=== PATIENT | female | born 1940 | race Caucasian/White ===

== ENCOUNTER 2021-05-23 15:16 | Inpatient (IN) | payer MEDICARE, OTHER ==
[~2021-05-23] VITALS: Ht 167.6 cm; Wt 63.5 kg
--- NOTE | 2021-05-23 15:56 | NUR ---
BIB RA 878 FROM HOME,WORSENING RIGHT KNEE PAIN/SWELLING X 2 WEEKS,DENIES TRAUMA . SKIN INTACT. PT A/OX1-2. TOLERATING R/A WELL WITH NO SOB. CONNECTED PT TO POX AND MONITOR.
[2021-05-23 16:53] LABS: BASOPHILS % (AUTO) 0.2 % (0.0-2.0); HEMATOCRIT 42 % (33-45); HEMOGLOBIN 13.8 g/dL (11.5-14.8); LYMPHOCYTES # (AUTO) 0.6 K/uL (0.8-4.8); MEAN CORPUSCULAR HGB CONC 33 g/dl (31.0-36.0); MEAN CORPUSCULAR VOLUME 92 fL (82-100); MONOCYTES # (AUTO) 0.8 K/uL (0.1-1.30); MONOCYTES % (AUTO) 8.8 % (2.0-12.0); NEUTROPHILS # (AUTO) 7.2 K/uL (1.8-8.9); PLATELET COUNT (AUTO) 258 K/uL (150-450); RED BLOOD CELL COUNT(AUTO) 4.56 MIL/uL (4.0-5.2); WHITE BLOOD COUNT (AUTO) 8.6 K/uL (4.3-11.0)
[2021-05-23 17:00] LABS: CALCIUM, SERUM 8.9 mg/dL (8.5-10.1); POTASSIUM 3.4 mmol/L (3.5-5.1)
--- NOTE | 2021-05-23 17:23 | NUR ---
AVANI CALLES (DAUGHTER)
[2021-05-23] MEDS ORDERED: DONE10TA44 PO (18:04)
[2021-05-23] MEDS ORDERED: LEVA15HF4 IH (18:04)
[2021-05-23] MEDS ORDERED: ASPI-1169 PO (18:05)
[2021-05-23] MEDS ORDERED: MAGNESIUM HYDROXIDE 30 ML UDC PO PRN (18:30)
[2021-05-23] MEDS ORDERED: Z GUARD REMEDY 2 OZ OINT TP PRN (18:30)
[2021-05-23] MEDS ORDERED: ZOLPIDEM TARTRATE 5 MG TABLET PO PRN (18:30)
[2021-05-23] MEDS ORDERED: POTASSIUM CHLORIDE 20 MEQ TAB.PRT.SR PO ONE ×2 (18:30→20:51)
[2021-05-23] MEDS ORDERED: MAG HYDROX/AL HYDROX/SIMETH 30 ML UDC PO PRN (18:30)
[2021-05-23] MEDS ORDERED: TEMAZEPAM 15 MG CAPSULE PO PRN (18:30)
[2021-05-23] MEDS ORDERED: ACETAMINOPHEN 325 MG TABLET PO PRN (18:30)
[2021-05-23] MEDS ORDERED: ONDANSETRON HCL/PF 4 MG/2 ML VIAL IVP PRN (18:30)
[2021-05-23] MEDS ORDERED: MORPHINE SULFATE INJ 4 MG/ML DISP.SYRIN ONE (18:44)
--- NOTE | 2021-05-23 18:54 | NUR ---
PIOTR HANCOCK AT PT'S BEDSIDE FOR RIGHT KNEE ASPIRATION PROCEDURE; CONSENT FORM SIGNED
--- NOTE | 2021-05-23 18:55 | NUR ---
MD Almeida KNEE ASPIRATION DONE WITH 80 ML OUTPUT; SENT TO LAB FOR CELL COUNT, CULTURE. AVANI HYLTON
[2021-05-23] MEDS ORDERED: MORPHINE SULFATE INJ 2 MG/ML DISP.SYRIN IV ONE (19:00)
[2021-05-23] MEDS ORDERED: ONDANSETRON HCL/PF 4 MG/2 ML VIAL IV ONE (19:00)
--- NOTE | 2021-05-23 19:00 | NUR ---
LAC #18G S/L; PATENT AND INTACT
--- NOTE | 2021-05-23 19:05 | NUR ---
COVID ANTIGEN SWAB COLLECTED AND SENT TO LAB
--- NOTE | 2021-05-23 19:49 | NUR ---
REQUESTED BED FROM NURSING SUP
[2021-05-23] MEDS ORDERED: HYDROCODONE/APAP 5/325MG TABLET ONE (21:10)
[2021-05-23] MEDS: HYDROCODONE/APAP 5/325MG TABLET PO PRN (21:12)
--- NOTE | 2021-05-23 22:23 | NUR ---
ROOM 324-1
--- NOTE | 2021-05-23 22:39 | NUR ---
REPORT GIVEN TO NINO (GERTRUDE).
--- NOTE | 2021-05-23 22:44 | NUR ---
PT TRANSFERRED TO [facility] VIA HOSPITAL PROTOCOL.
--- NOTE | 2021-05-23 23:00 | NUR ---
MS RN ADMITTING NOTES PT ARRIVED TO UNIT VIA DIA. PT IS A 80 YEAR FRENCH SPEAKING FEMALE PT A/O X 3-4 WITH SOME FORGETFULNESS. PT IN NO PAIN OR DISCOMFORT AT THIS TIME. PT HAS IV ACCESS ON THE LAC #18G SALINE LOCKED PATENT AND FLUSHING WELL. PT DX SEVERE RIGHT KNEE PAIN. PT S/P KNEE ARTHROCENTESIS IN ER 80 CC OF YELLOW CLOUDY SYNOVIAL FLUID COLLECTED AND SENT TO THE LAB FOR TESTING. NOTED PT WITH RIGHT KNEE NON PITTING EDEMA. KNEE PAINFUL UPON TOUCH. PT HAS MEDICAL HISTORY OF APPENDECTOMY, DEMENTIA, ASTHMA, MITRAL VALVE PROLAPSE. PT IS A POOR HISTORIAN. PT SKIN IS DRY WARM AND INTACT NO DISCOLORATION OR REDNESS NOTED UPON ASSESSMENT. PT BELONGINGS CHECKED. PT ORIENTED TO ROOM AND UNIT CALL LIGHT PLACED WITHIN REACH WILL CONTINUE TO MONITOR.
[2021-05-23] MEDS: MORPHINE SULFATE INJ 2 MG/ML DISP.SYRIN IV PRN (23:31)
--- NOTE | 2021-05-23 23:36 | NUR ---
MS RN NOTES PT REPORTING SEVERE RIGHT KNEE PAIN PRN MORPHINE GIVEN AND TOLERATED WELL. WILL CONTINUE TO MONITOR.
[2021-05-24] VITALS: BP 169/90
[2021-05-24] MEDS: HYDROCODONE/APAP 5/325MG TABLET PO PRN ×3 (01:20→16:05)
--- NOTE | 2021-05-24 01:20 | NUR ---
MS RN NOTES PRN NORCO GIVEN FOR BREAKTHROUGH PAIN GIVEN AND TOLERATED WELL. WILL CONTINUE TO MONITOR.
[2021-05-24 01:23] VITALS: BP 155/56
[2021-05-24] MEDS: MORPHINE SULFATE INJ 2 MG/ML DISP.SYRIN IV PRN ×3 (06:03→18:36)
--- NOTE | 2021-05-24 06:53 | NUR ---
MACHINE PULLER OVER CLOSING NOTES PATIENT STILL AWAKE LAYING IN BED. A/O X3 FORGETFUL. PATIENT WITH REGULAR AND UNLABORED BREATHING ON ROOM AIR, TOLERATED WELL. NO SIGNS AND SYMPTOMS OF DISTRESS NOTED. ADMINISTERED PAIN MEDICATION NEEDED. IV ACCESS LAC G #18IV ACCESS PATENT AND INTACT. SAFETY PRECAUTIONS ENFORCED WITH BED LOCKED AND AT LOWEST POSITION. SIDERAILS UP X2. CALL LIGHT WITHIN REACH AT ALL TIMES. WILL ENDORSE CONTINUITY OF CARE TO DAY SHIFT NURSE.
--- NOTE | 2021-05-24 07:25 | NUR ---
MS RN OPENING NOTE RECEIVED PATIENT RESTING IN BED. PATIENT IS A/O X4. PATIENT IS BREATHING EVENLY AND NONLABORED ON ROOM AIR. NO SIGNS OF DISTRESS NOTED. PATIENT COMPLAINS OF PAIN IN THE KNEE, WILL GIVE PRN PAIN MEDICATION ORDERED. PATIENT HAS IV ACCESS TO LAC # 18 GAUGE PATENT AND INTACT. SAFETY MEASURES IN PLACE, BED LOW LOCKED AND CALL LIGHT WITHIN REACH. WILL CONTINUE TO MONITOR
[2021-05-24 08:00] VITALS: BP 124/86
[2021-05-24] MEDS: PANTOPRAZOLE 40 MG TABLET.DR PO SCH (08:05)
[2021-05-24] MEDS: ENOXAPARIN SODIUM 40 MG/0.4 ML DISP.SYRIN SQ SCH (08:05)
[2021-05-24 09:07] LABS: BASOPHILS % (AUTO) 0.1 % (0.0-2.0); HEMATOCRIT 41 % (33-45); HEMOGLOBIN 13.8 g/dL (11.5-14.8); LYMPHOCYTES # (AUTO) 0.6 K/uL (0.8-4.8); LYMPHOCYTES % (AUTO) 6.1 % (20.0-44.0); MEAN CORPUSCULAR HGB CONC 33 g/dl (31.0-36.0); MEAN CORPUSCULAR VOLUME 92 fL (82-100); MONOCYTES # (AUTO) 0.8 K/uL (0.1-1.30); MONOCYTES % (AUTO) 8.2 % (2.0-12.0); NEUTROPHILS # (AUTO) 7.8 K/uL (1.8-8.9); NEUTROPHILS % (AUTO) 85.6 % (43.0-81.0); PLATELET COUNT (AUTO) 213 K/uL (150-450); WHITE BLOOD COUNT (AUTO) 9.2 K/uL (4.3-11.0)
[2021-05-24 09:45] LABS: CALCIUM, SERUM 8.7 mg/dL (8.5-10.1); CREATININE 0.9 mg/dL (0.6-1.3); MAGNESIUM 2.2 mg/dL (1.8-2.4); PHOSPHORUS 2.5 mg/dL (2.5-4.9); POTASSIUM 3.7 mmol/L (3.5-5.1)
[2021-05-24 10:02] LABS: THYROID STIMULATING HORMONE 0.988 uIU/mL (0.358-3.74)
[2021-05-24 16:00] VITALS: BP 113/60
--- NOTE | 2021-05-24 18:19 | NUR ---
MS RN CLOSING NOTE PATIENT RESTING IN BED. PATIENT IS A/O X4. PATIENT IS BREATHING EVENLY AND NONLABORED ON ROOM AIR. NO SIGNS OF DISTRESS NOTED. PATIENT COMPLAINED OF PAIN IN THE KNEE THROUGHOUT SHIFT, PRN MEDICATION GIVEN ORDERED, VITALS MAINTAINED WNL. ALL MEDICATIONS GIVEN ORDERED. PATIENT HAS IV ACCESS TO LAC # 18 GAUGE PATENT AND INTACT. SAFETY MEASURES IN PLACE, BED LOW LOCKED AND CALL LIGHT WITHIN REACH. WILL ENDORSE TO ONCOMING SHIFT
--- NOTE | 2021-05-24 19:20 | NUR ---
MS RN OPENING NOTES RECEIVED PATIENT RESTING IN BED. PATIENT IS A/O X4. PATIENT ON R.A IS BREATHING EVEN AND UNLABORED.. NO SIGNS OF RESPIRATORY DISTRESS NOTED. PATIENT DENIES OF PAIN AT THIS TIME . PATIENT HAS IV ACCESS TO LAC # 18 GAUGE PATENT AND INTACT. SAFETY MEASURES IN PLACE, BED LOW LOCKED AND CALL LIGHT WITHIN REACH. WILL CONTINUE TO MONITOR PATIENT ACCORDINGLY
[2021-05-24 20:00] VITALS: BP 132/77
--- NOTE | 2021-05-25 00:27 | NUR ---
RN NOTES PATIENT NOTED WITH TEMP. OF 101.3F, ACETAMINOPHEN 650 MG TAB. PO GIVEN PRN. TSB RENDERED. ENCORAGED PT. TO DRIINK MORE FLUIDS TOLERATED. AFTER 2 HR. TEMP. WENT DOWN TO 98.7f
[2021-05-25] MEDS: HYDROCODONE/APAP 5/325MG TABLET PO PRN ×2 (01:49→20:30)
--- NOTE | 2021-05-25 01:49 | NUR ---
RN NOTES PATIENT C/O RIGT KNEE PAIN, NORCO 5/325 MG TAB. PO PRN GIVEN ORDERED. PLACED PT. TO COMFORTABLE POSITION. WILL CONTINUE TO MONITOR PT. ACCDGLY.
--- NOTE | 2021-05-25 07:06 | NUR ---
MS RN CLOSING NOTES PATIENT RESTING IN BED. PATIENT IS A/O X4. PATIENT ON R.A IS BREATHING EVEN AND UNLABORED.. NO SIGNS OF RESPIRATORY DISTRESS NOTED. PATIENT DENIES OF PAIN AT THIS TIME . PATIENT HAS IV ACCESS TO LAC # 18 GAUGE PATENT AND INTACT. SAFETY MEASURES IN PLACE, BED LOW LOCKED AND CALL LIGHT WITHIN REACH. WILL ENDORSED PATIENT TO DAY TIME SHIFT FOR HIRAM
[2021-05-25] MEDS: PANTOPRAZOLE 40 MG TABLET.DR PO SCH (07:54)
[2021-05-25] MEDS: MORPHINE SULFATE INJ 2 MG/ML DISP.SYRIN IV PRN (07:54)
[2021-05-25] MEDS: ENOXAPARIN SODIUM 40 MG/0.4 ML DISP.SYRIN SQ SCH (07:56)
[2021-05-25 08:00] VITALS: BP 162/70
--- NOTE | 2021-05-25 08:12 | NUR ---
RN OPENING NOTES PT A/OX4, PT AWAKE IN BED, NO RR DISTRESS, NO SOB, COMPLAINED OF PAIN 9/10 IN LOWER BACK, NO IV SALINE LOCK ON RIGHT ARM, NO SIGNS OF BEING PULLED OUT, RIGHT ARM TAPED WITH GAUZE, NEW IV ACCESS GAUGE 20 PLACED ON RIGHT FOREARM, PRN PAIN MED ADMINISTERED VIA IV, MORNING MEDS GIVEN, ABLE TO TOLERATE PO MEDS, PT ASSESSED SHORTLY AFTER, PT RESTING IN BED. SAFETY PRECAUTIONS MET, CALL LIGHT WITHIN REACH, BED LOCKED AND IN LOWEST POSITION.
[2021-05-25] MEDS ORDERED: NAPR-1009 PO (10:05)
[2021-05-25] MEDS ORDERED: HYDR-4275 PO (10:41)
[2021-05-25] MEDS: HYDROMORPHONE 1 MG/1 ML DISP.SYRIN IV PRN ×3 (11:05→18:21)
[2021-05-25 16:00] VITALS: BP 145/74
--- NOTE | 2021-05-25 19:00 | NUR ---
RN MS NOTES PT IN BED, RESTING, PAIN MEDS GIVEN ORDERED FOR RIGHT KNEE PAIN, PM CARE PROVIDED, KEPT WARM AND COMFORTABLE AT ALL TIMES.
--- NOTE | 2021-05-25 19:21 | NUR ---
RN OPENING NOTES RECEIVED PT A/OX4, PT AWAKE IN BED, NO RESPIRATORY DISTRESS NOTED, NO SOB,BREATHING EVEN AND UNLABORED. NO PAIN AT THIS TIME. PT. WITH IV ACCESS AT RFA SALINE LOCKED, INTACT AND PATENT. SAFETY PRECAUTIONS MET, CALL LIGHT WITHIN EASY REACH, BED LOCKED AND IN LOWEST POSITION, SRX [address] WILL CONTINUE TO MONITOR PT. ACCDGLY
--- NOTE | 2021-05-25 19:33 | NUR ---
RN CLOSING NOTES PT RESTING IN BED, A/0X4, ADMINISTERED MEDS ORDERED, COMFORT MEASURES MET, PERSONAL HYGIENE CARE PROVIDED, CALL LIGHT WITHIN REACH, BED LOWERED AND LOCKED, SAFETY PRECAUTIONS PROVIDED
[2021-05-25 20:23] VITALS: BP 147/69
--- NOTE | 2021-05-25 20:35 | NUR ---
RN NOTES PATIENT C/O RIGHT KNEE PAIN, PRN NORCO 5-325 GIVEN ORDERED. PLACED PT. IN COMFORTABLE POSITION. WILL CONTINUE TO MONITOR PT. ACCDGLY
[2021-05-26] MEDS: HYDROMORPHONE 1 MG/1 ML DISP.SYRIN IV PRN ×3 (03:55→14:06)
--- NOTE | 2021-05-26 06:32 | NUR ---
RN CLOSING NOTES PT A/OX4, PT AWAKE IN BED, NO RESPIRATORY DISTRESS NOTED, NO SOB,BREATHING EVEN AND UNLABORED. NO PAIN AT THIS TIME. PT. WITH IV ACCESS AT RFA SALINE LOCKED, INTACT AND PATENT. ALL NEEDS ATTENDED. FREQUENT VISUAL CHECKS RENDERED TO ENSURE SAFETY AND COMFORT. SAFETY PRECAUTIONS MET, CALL LIGHT WITHIN EASY REACH. SR UP X 2. WILL ENDORSED PT. TO DAY TIME SHIFT NURSE FOR HIRAM.
--- NOTE | 2021-05-26 07:30 | NUR ---
RN OPENING NOTES RECEIVED Patient AWAKE IN BED, NO RESPIRATORY DISTRESS NOTED, NO SOB,BREATHING EVEN AND UNLABORED. NO PAIN AT THIS TIME. IV ACCESS AT RFA #20 SALINE LOCKED, INTACT AND PATENT. SAFETY PRECAUTIONS MET, CALL LIGHT WITHIN EASY REACH, BED LOCKED AND IN LOWEST POSITION, SIDE RAILS X2 UP. WILL CONTINUE TO MONITOR THE PATIENT.
[2021-05-26] MEDS: PANTOPRAZOLE 40 MG TABLET.DR PO SCH (07:40)
[2021-05-26 08:00] VITALS: BP 157/75
[2021-05-26] MEDS: ENOXAPARIN SODIUM 40 MG/0.4 ML DISP.SYRIN SQ SCH (12:19)
[2021-05-26 15:59] VITALS: BP 134/75
--- NOTE | 2021-05-26 17:29 | NUR ---
FIELD STAFF NOTES SPOKE WITH ELIZABET FROM [facility].GAVE THE REPORT TO HER WITH PHONE NUMBER [phone]. ALL NEEDS ATTENDED. DISCHARGE PATIENT IN GOOD CONDITION.VITAL SIGNS: UW=602/75. P=70, RR=20, T=98.6, O2=94%RA. IV ACCESS REMOVED. COVERED WITH DRY DRESSING. NO BLEEDING, NOTED. DISCHARGE AT 1607 WITH ROOM AIR BREATHING. NO SOB NO RESPIRATORY DISTRESS NOTES.BELONGINGS ACCOUNTED AND SIGNED FOR.ARM BAND REMOVED. 2 MT TRANSFER THE PATIENT VIA AMBULANCE WHILE IN STABLE CONDITION TO [facility].
== END 2021-05-26 16:00 | DRG 554 ==
LOC: ER 15:20 → TRANSITION 20:40 → MED 22:28
PROVIDERS: ADMIT Nurse Practitioner Acute Care; ATTEND Internal Medicine
PROC: 0S9C3ZX Drainage of Right Knee Joint, Percutaneous Approach, Diagnostic (ICD-10-PCS; principal; 2021-05-23)
DX: M17.11 Unilateral primary osteoarthritis, right knee (principal); D68.59 Other primary thrombophilia; E87.6 Hypokalemia; F03.90 Unspecified dementia, unspecified severity, without behavioral disturbance, psychotic disturbance, mood disturbance, and anxiety; I34.1 Nonrheumatic mitral (valve) prolapse; J45.909 Unspecified asthma, uncomplicated; Z20.822 Contact with and (suspected) exposure to COVID-19; Z79.82 Long term (current) use of aspirin; Z79.51 Long term (current) use of inhaled steroids; Z79.899 Other long term (current) drug therapy; M11.261 Other chondrocalcinosis, right knee; M10.9 Gout, unspecified; Z74.09 Other reduced mobility; M81.0 Age-related osteoporosis without current pathological fracture
CPT/HCPCS: 36415; 71045-TC; 73564-TC; 80048-TC; 83735-TC; 84100-TC; 84443-TC; 84550-TC; 85025-TC; 87070-TC; 87081-TC; 89051-TC; 97530-TC; C9803; G0378; J1170; J1650; J2270; J2405

== ENCOUNTER 2022-01-17 02:06 | Inpatient (IN) | payer OTHER, MEDICARE ==
[~2022-01-17] VITALS: Ht 167.6 cm; Wt 63.5 kg
[~2022-01-17 02:06] MED LIST: ASPI-1169 PO; DONE10TA44 PO; HYDR-4275 PO; LEVA15HF4 IH; NAPR-1009 PO
[2022-01-17] MEDS ORDERED: IV NS 0.9% 1,000 ML IV ONE (02:30)
[2022-01-17] MEDS ORDERED: ONDANSETRON HCL/PF 4 MG/2 ML VIAL IVP ONE (02:30)
[2022-01-17] MEDS ORDERED: ONDANSETRON HCL/PF 4 MG/2 ML VIAL ONE (02:32)
--- NOTE | 2022-01-17 02:40 | NUR ---
PATIENT BIBRA 839 C/O DIZZYNESS, NAUSEA AND VOMMITING STARTED TONIGHT. PATIENT IS A/O X3, RR EVEN AND UNLABORED. NO SOB NOTED. PATIENT TAKEN TO ER BED 10. PATIENT CONNECTED TO DIRECTOR OF NUCLEAR MEDICINE AND POX.
[2022-01-17 02:44] LABS: BASOPHILS % (AUTO) 0.6 % (0.0-2.0); HEMATOCRIT 40 % (33-45); HEMOGLOBIN 13.2 g/dL (11.5-14.8); LYMPHOCYTES % (AUTO) 16.4 % (20.0-44.0); MEAN CORPUSCULAR HGB CONC 33 g/dl (31.0-36.0); MEAN CORPUSCULAR VOLUME 89 fL (82-100); MONOCYTES # (AUTO) 0.3 K/uL (0.1-1.30); MONOCYTES % (AUTO) 4.7 % (2.0-12.0); NEUTROPHILS # (AUTO) 4.7 K/uL (1.8-8.9); NEUTROPHILS % (AUTO) 76.3 % (43.0-81.0); PLATELET COUNT (AUTO) 220 K/uL (150-450); RED BLOOD CELL COUNT(AUTO) 4.51 MIL/uL (4.0-5.2); WHITE BLOOD COUNT (AUTO) 6.1 K/uL (4.3-11.0)
[2022-01-17 02:54] LABS: CALCIUM, SERUM 8.8 mg/dL (8.5-10.1); CARBON DIOXIDE 27 mmol/L (21-32); CHLORIDE 102 mmol/L (98-107); CREATININE 0.9 mg/dL (0.6-1.3); GLUCOSE 178 mg/dL (74-106); POTASSIUM 3.1 mmol/L (3.5-5.1); SODIUM SERUM 139 mmol/L (136-145); UREA NITROGEN, BLOOD 21 mg/dL (7-18)
[2022-01-17 03:00] LABS: ALANINE AMINOTRANSFERASE 25 U/L (12-78); ALBUMIN 3.8 g/dL (3.4-5.0); ALKALINE PHOSPHATASE 96 U/L (46-116); ASPARTATE AMINOTRANSFERASE 15 U/L (15-37); BILIRUBIN,DIRECT 0.1 mg/dL (0.0-0.2); BILIRUBIN,TOTAL 0.5 mg/dL (0.2-1.0); TOTAL PROTEIN, SERUM 7.3 g/dL (6.4-8.2)
[2022-01-17] MEDS ORDERED: POTASSIUM CHLORIDE 20 MEQ TAB.PRT.SR PO ONE ×2 (03:30→03:34)
[2022-01-17 05:05] LABS: BILIRUBIN,URINE NEGATIVE (NEGATIVE); COLOR,URINE YELLOW (YELLOW); LEUKOCYTE ESTERASE ,URINE NEGATIVE (NEGATIVE); NITRITE, URINE NEGATIVE (NEGATIVE); PH,URINE 5.5 (5.0-8.0); PROTEIN,URINE NEGATIVE (NEGATIVE); UGLUCOSE NEGATIVE (NEGATIVE); UROBILINOGEN,URINE 0.2 EU/dL (0.2)
--- NOTE | 2022-01-17 05:21 | NUR ---
URINE COLLECTED SENT TO LAB
--- NOTE | 2022-01-17 05:21 | NUR ---
COVID SWAB COLLECTED SENT TO LAB
[2022-01-17] MEDS ORDERED: MAG HYDROX/AL HYDROX/SIMETH 30 ML UDC PO PRN (06:30)
[2022-01-17] MEDS ORDERED: ACETAMINOPHEN 325 MG TABLET PO PRN (06:30)
[2022-01-17] MEDS ORDERED: Medication Not On Formulary EA (Levalbuterol Tartrate (Xopenex Hfa) 2 PUFF) IH PRN (06:30)
[2022-01-17] MEDS ORDERED: IV NS 0.9% 1,000 ML IV PRN (06:30)
[2022-01-17] MEDS ORDERED: ONDANSETRON HCL/PF 4 MG/2 ML VIAL IVP PRN (06:30)
--- NOTE | 2022-01-17 07:41 | NUR ---
BED ASSIGNED 310-2
[2022-01-17 07:45] LABS: LIPASE 121 U/L (73-393)
--- NOTE | 2022-01-17 07:47 | NUR ---
DAUGHTER CALLED AND UPDATED ON STATUS
[2022-01-17] MEDS ORDERED: ALBUTEROL FS 2.5 MG/0.5 ML VIAL.NEB NEB PRN (08:30)
--- NOTE | 2022-01-17 08:40 | NUR ---
PT REPORT GIVEN TO GERTRUDE GONZALES.
--- NOTE | 2022-01-17 08:53 | NUR ---
PT TRANSFERRED TO UNIT VIA GURNEY. WARM HANDOFF GIVEN TO RN ASSIGNED.
[2022-01-17] MEDS ORDERED: HYDROCODONE/APAP 5/325MG TABLET PO PRN (09:00)
[2022-01-17] MEDS ORDERED: Z GUARD REMEDY 4 OZ OINT TP PRN (09:00)
--- NOTE | 2022-01-17 09:00 | NUR ---
ADMISSION NOTES RECEIVED PATIENT VIA GURNEY 85 Y/O FEMALE ADMITTED WITH CHIEF COMPLAINT OF DIZZINESS, NAUSEA AND VOMITING ALERT AWAKE ORIENTED X4 WITH PERIODS OF FORGETFULNESS .IV ACCESS ON LAC G# 20 . INTACT AND PATENT.VITAL SIGNS FOLLOWS: BP= 125/53 CA= 63 RR= 18 TEMP= 97.9 O2 SAT = 98% ROOM AIR. PATIENT DENIES DIZZINESS AND N/V AT THIS TIME.PATIENT ORIENTED TO ROOM AND HOW TO USE CALL LIGHTS . SKIN ASSESSMENT DONE ,SKIN IS C/D/I.LUNGS CLEAR ON AUSCULTATION , BOWEL SOUND PRESENT X 4 . ABDOMEN IS SOFT NON-TENDER. ALL BELONGINGS ACCOUNTED FOR , BELONGING SHEET SIGNED. ID BAND PLACED ON PATIENTS RIGHT WRIST. ALL ADMISSION ORDERS NOTED AND CARRIED OUT. SAFETY MEASURES IN PLACE LOW BED IN LOWEST POSITION , KEPT BED IN LOCK POSITION, SIDE RAILS UP X 2 AND CALL LIGHT WITHIN REACH.WILL CONTINUE TO MONITOR.
[2022-01-17] MEDS: ASPIRIN 81 MG TAB.CHEW PO SCH (09:58)
[2022-01-17] MEDS: ENOXAPARIN SODIUM 40 MG/0.4 ML DISP.SYRIN SQ SCH (17:56)
[2022-01-17] MEDS ORDERED: DONEPEZIL 5 MG TABLET PO SCH (18:00)
[2022-01-17] MEDS ORDERED: Medication Not On Formulary EA (Donepezil Hcl 10 MG) PO SCH (18:00)
--- NOTE | 2022-01-17 18:56 | NUR ---
SHIP BOSS CLOSING NOTES PATIENT RESTING COMFORTABLY IN BED. NO SIGNS OF DISTRESS OR DISCOMFORT NOTED AT THIS.ALERT ORIENTED X 3 WITH PERIODS OF FORGETFULNESS. BREATHING EVENLY AND UNLABORED. IV ACCESS LEFT AC GAUGE 2O SL INTACT AND PATENT.ON TELE MONITORING 74 BPM SINUS RHYTHM WITH PAC .ALL DUE MEDS GIVEN AND NO ADVERSE REACTION NOTED . ALL NEEDS ATTENDED AND MET. SAFETY PRECAUTIONS IN PLACE BED IN LOW LOCK POSITION , SIDE RAILS UP X 2 AND CALL LIGHT WITHIN REACH . WILL ENDORSE TO TOWER FOREMAN NURSE FOR HIRAM.
--- NOTE | 2022-01-17 19:15 | NUR ---
BILL SORTER NOTES RECEIVED RESTING COMFORTABLY ON BED,A/O X3,NO SOB,SALINE LOCK LEFT AC INTACT AND PATENT.COMMENTED STILL WITH SLIGHT DIZZINESS,FALL PRECAUTION OBSERVED,BED ON LOWEST POSITION AND LOCKED,BED ALARM,CALL LIGHT IN REACH,NEEDS ANTICIPATED.
--- NOTE | 2022-01-17 19:33 | NUR ---
MANUFACTURING PLANT CONTROLLER NOTES STARTED ON IVF NS AT 100ML/HR RATE.
[2022-01-17 20:00] VITALS: BP 102/67
[2022-01-17] MEDS ORDERED: ZOLPIDEM TARTRATE 5 MG TABLET PO PRN (22:00)
[2022-01-17] MEDS ORDERED: MAGNESIUM HYDROXIDE 30 ML UDC PO PRN (22:00)
[2022-01-18] VITALS: BP 108/57
[2022-01-18 04:00] VITALS: BP 122/59
[2022-01-18 06:21] LABS: BASOPHILS % (AUTO) 0.7 % (0.0-2.0); EOSINOPHILS % (AUTO) 3.5 % (0.0-6.0); HEMATOCRIT 35 % (33-45); HEMOGLOBIN 11.9 g/dL (11.5-14.8); LYMPHOCYTES # (AUTO) 1.2 K/uL (0.8-4.8); MEAN CORPUSCULAR HGB CONC 34 g/dl (31.0-36.0); MEAN CORPUSCULAR VOLUME 89 fL (82-100); MONOCYTES # (AUTO) 0.3 K/uL (0.1-1.30); MONOCYTES % (AUTO) 7.7 % (2.0-12.0); NEUTROPHILS # (AUTO) 2.1 K/uL (1.8-8.9); NEUTROPHILS % (AUTO) 56.1 % (43.0-81.0); PLATELET COUNT (AUTO) 199 K/uL (150-450); WHITE BLOOD COUNT (AUTO) 3.8 K/uL (4.3-11.0)
[2022-01-18 06:32] LABS: CALCIUM, SERUM 8.5 mg/dL (8.5-10.1); CARBON DIOXIDE 29 mmol/L (21-32); CHLORIDE 110 mmol/L (98-107); CREATININE 0.8 mg/dL (0.6-1.3); GLUCOSE 90 mg/dL (74-106); MAGNESIUM 2.1 mg/dL (1.8-2.4); PHOSPHORUS 3.7 mg/dL (2.5-4.9); POTASSIUM 3.5 mmol/L (3.5-5.1); SODIUM SERUM 145 mmol/L (136-145); UREA NITROGEN, BLOOD 13 mg/dL (7-18)
--- NOTE | 2022-01-18 07:01 | NUR ---
OVERSIZE LOAD PILOT ESCORT NOTES MRSA SWAB DONE,NO FALL,NO INJURY,BRP WITH STANDBY ASSIST.NO DISTRESS.
--- NOTE | 2022-01-18 07:21 | NUR ---
BABYSITTER OPENING NOTES RECEIVED PATIENT AWAKE IN BED IN NO ACUTE SIGNS OF DISTRESS. A/O X3, ABLE TO VERBALIZED NEEDS, DENIES PAIN OR ANY DISCOMFORTS AT THIS TIME. ON ROOM AIR, TOLERATING WELL, BREATHING EVEN AND UNLABORED. ON TELE-MONITOR WITH READING OF NSR WITH PAC'S AND PVC'S, HR 84 AT THIS TIME, NO C/O CARDIAC DISTRESS VOICED. IV ACCESS ON RFA G#22 INTACT WITH IVF OF NS @ 100ML/HR INFUSING WELL, NO S/S OF INFILTRATION AT SITE NOTED. FALL AND SAFETY MEASURES IN PLACE: BED ON LOWEST POSITION AND LOCKED, BED ALARM ON AND CALL LIGHT IN REACH. WILL CONTINUE TO MONITOR PT.
[2022-01-18 08:30] VITALS: BP 114/64
[2022-01-18 08:32] VITALS: BP 109/63
[2022-01-18 08:35] VITALS: BP 107/46
[2022-01-18] MEDS: ENOXAPARIN SODIUM 40 MG/0.4 ML DISP.SYRIN SQ SCH (09:07)
[2022-01-18] MEDS: ASPIRIN 81 MG TAB.CHEW PO SCH (09:08)
--- NOTE | 2022-01-18 10:17 | NUR ---
RN NOTES PT SEEN AND EVALUATED BY JOHN PHYSICAL THERAPIST. PT DEMONSTRATES SAFE GAIT AND IS SAFE TO WALK WITH STAFF SUPERVISION
--- NOTE | 2022-01-18 15:32 | NUR ---
PAINTING SUPERVISOR NOTES PT DISCHARGED HOME IN STABLE CONDITION. A/O X4. ABLE TO MAKE NEEDS KNOWN. PT ON ROOM AIR, TOLERATING WELL WITH NO ACUTE RESP[IRATORY DISTRESS NOTED. V/S TAKEN, STABLE AND RECORDED. ALL PT'S BELONGINGS ACCOUNTED FOR AND PT'S DAUGHTER SIGNED BELONGINGS LIST. IV ACCESS ON RFA G# 22 REMOVED WITH NO ACTIVE BLEEDING NOTED, DRY PRESSURE DRESSINGS APPLIED AT SITE. NAME VIBHA REMOVED. HEALTH TEACHINGS/DISCHARGE INSTRUCTIONS GIVEN TO PT, DAUGHTER AND SON WITH VERBALIZATION OF UNDERSTANDING. EXIT FOLDER HANDED TO PT'S DAUGHTER. PT LEFT UNIT AT 1535 VIA WHEELCHAIR ACCOMPANIED BY SON ALFREDO, DAUGHTER IN LAW AVANI AND MYSELF. MD AND CHARGE NURSE AWARE OF DC.
== END 2022-01-18 15:30 | disposition home or self-care (01) | DRG 73 ==
LOC: ER 02:09 → TRANSITION 06:23 → TELE 08:03
PROVIDERS: ADMIT Nurse Practitioner Acute Care; ATTEND Student in an Organized Health Care Education/Training Program
DX: G90.8 Other disorders of autonomic nervous system (principal); G93.41 Metabolic encephalopathy; N17.0 Acute kidney failure with tubular necrosis; J45.909 Unspecified asthma, uncomplicated; Z79.82 Long term (current) use of aspirin; E87.6 Hypokalemia; F03.90 Unspecified dementia, unspecified severity, without behavioral disturbance, psychotic disturbance, mood disturbance, and anxiety; M19.90 Unspecified osteoarthritis, unspecified site; Z20.822 Contact with and (suspected) exposure to COVID-19; E86.0 Dehydration
CPT/HCPCS: 36415; 70450-TC; 71045-TC; 80048-TC; 80076-TC; 83690-TC; 83735-TC; 84100-TC; 84484-TC; 85025-TC; 85730-TC; 87081-TC; 93307-TC; 94799-TC; 97116-TC; 97530-TC; C9803; G0378; J1650; J2405; J7030

== ENCOUNTER 2022-02-09 22:45 | Inpatient (IN) | payer OTHER, MEDICARE ==
[~2022-02-09] VITALS: Ht 167.6 cm; Wt 64.4 kg
[~2022-02-09 22:45] MED LIST changes: -NAPR-1009 PO
[2022-02-09] MEDS ORDERED: MORPHINE SULFATE INJ 2 MG/ML DISP.SYRIN IV ONE (23:30)
[2022-02-09 23:36] LABS: BASOPHILS % (AUTO) 0.4 % (0.0-2.0); EOSINOPHILS % (AUTO) 1.3 % (0.0-6.0); HEMATOCRIT 43 % (33-45); HEMOGLOBIN 13.9 g/dL (11.5-14.8); LYMPHOCYTES # (AUTO) 1.2 K/uL (0.8-4.8); LYMPHOCYTES % (AUTO) 17.5 % (20.0-44.0); MEAN CORPUSCULAR HGB CONC 33 g/dl (31.0-36.0); MEAN CORPUSCULAR VOLUME 90 fL (82-100); MONOCYTES # (AUTO) 0.5 K/uL (0.1-1.30); MONOCYTES % (AUTO) 7.1 % (2.0-12.0); NEUTROPHILS # (AUTO) 4.9 K/uL (1.8-8.9); NEUTROPHILS % (AUTO) 73.7 % (43.0-81.0); PLATELET COUNT (AUTO) 248 K/uL (150-450); WHITE BLOOD COUNT (AUTO) 6.6 K/uL (4.3-11.0)
[2022-02-09] MEDS ORDERED: MORPHINE SULFATE INJ 2 MG/ML DISP.SYRIN ONE (23:43)
[2022-02-09 23:44] LABS: CREATININE 1.1 mg/dL (0.6-1.3); POTASSIUM 3.7 mmol/L (3.5-5.1)
--- NOTE | 2022-02-09 23:45 | NUR ---
PT RETURNED TO ER BED [address]
--- NOTE | 2022-02-09 23:49 | NUR ---
ANNAMARIA TO ER BED 11. AAOX4. NOT IN RESP DISTRESS. BROUGHT IN FOR KNEE PAIN AND SWELLING STARTED SEVERAL DAYS PER PT BUT GOT WORST SEVERAL HOURS AGO. NOTED SWELLING AND PAIN RATE 10/10 CRAMPING. WAS AT [facility] BEDSIDE FOR EVAL
[2022-02-09 23:50] LABS: BILIRUBIN,DIRECT 0.1 mg/dL (0.0-0.2); BILIRUBIN,TOTAL 0.7 mg/dL (0.2-1.0); TOTAL PROTEIN, SERUM 7.3 g/dL (6.4-8.2)
--- NOTE | 2022-02-09 23:53 | NUR ---
COVID ANTIGEN SWAB COLLECTED AND SENT TO LAB
[2022-02-10] MEDS ORDERED: Z GUARD REMEDY 4 OZ OINT TP PRN (02:30)
[2022-02-10] MEDS ORDERED: ACETAMINOPHEN 325 MG TABLET PO PRN (02:30)
[2022-02-10] MEDS ORDERED: TEMAZEPAM 15 MG CAPSULE PO PRN (02:30)
[2022-02-10] MEDS ORDERED: MAGNESIUM HYDROXIDE 30 ML UDC PO PRN (02:30)
[2022-02-10] MEDS ORDERED: ONDANSETRON HCL/PF 4 MG/2 ML VIAL IVP PRN (02:30)
[2022-02-10] MEDS ORDERED: MAG HYDROX/AL HYDROX/SIMETH 30 ML UDC PO PRN (02:30)
[2022-02-10] MEDS ORDERED: HYDROCODONE/APAP 5/325MG TABLET PO PRN (02:30)
[2022-02-10] MEDS ORDERED: PANTOPRAZOLE 40 MG TABLET.DR PO ONE (07:17)
[2022-02-10] MEDS: PANTOPRAZOLE 40 MG TABLET.DR PO SCH (07:17)
[2022-02-10] MEDS ORDERED: HYDROCODONE/APAP 10/325MG TABLET ONE (07:24)
[2022-02-10] MEDS: HYDROCODONE/APAP 10/325MG TABLET PO PRN ×2 (07:24→12:05)
--- NOTE | 2022-02-10 07:50 | NUR ---
DR MUKHERJEE AT BEDSIDE W/ PT.
--- NOTE | 2022-02-10 08:21 | NUR ---
CALLED NURSING SUP FOR M/S BED.
--- NOTE | 2022-02-10 08:25 | NUR ---
BREAKFAST TRAY PROVIDED, TOBIAS WELL.
--- NOTE | 2022-02-10 08:40 | NUR ---
DAUGHTER AVANI CALLED AND LEFT CONTACT # [phone]
[2022-02-10] MEDS ORDERED: HYDR-3972 PO (09:47)
--- NOTE | 2022-02-10 10:42 | NUR ---
PT REPORT GIVEN TO BOBBI LOREDO/CHERYL LOREDO.
--- NOTE | 2022-02-10 11:07 | NUR ---
PT TRANSFERRED TO [facility] VIA [facility]. WARM HANDOFF GIVEN TO RN ASSIGNED.
--- NOTE | 2022-02-10 12:00 | NUR ---
RN NOTE RECEIVED PT FROM EMERGENCY ROOM. AWAKE IN BED. A/OX4. NO SIGNS OF RESPIRATORY DISTRESS OR SOB NOTED. STABLE ON RA. SWELLING IN PTS RIGHT KNEE, C/O PAIN OF 8 OUT OF 10. PAIN MEDICATION HAS BEEN ADMINISTERED. PT RESTING COMFORTABLY IN BED. WILL CONTINUE TO MONITOR.
--- NOTE | 2022-02-10 15:30 | NUR ---
RN NOTE ORTHO CAME TO ASPIRATE FLUID OUT OF THE PTS KNEE. 59CC OF FLUID REMOVED. PT RESTING COMFORTABLY IN BED.
[2022-02-10 15:51] VITALS: BP 128/76
[2022-02-10] MEDS: DONEPEZIL 5 MG TABLET PO SCH (18:02)
--- NOTE | 2022-02-10 18:32 | NUR ---
RN CLOSING NOTE, PT IS SLEEPING IN BED. A/O X 4. PT IS ON ROOM AIR, SO SIGNS OF SOB OR RESPIRATORY DISTRESS. STABLE ON RA. ORTHO CAME AND DRAINED FLUID OUT OF THE PT'S RIGHT KNEE, PT STATED THAT PAIN HAS NOW DECREASED. IV LEFT AC INTACT AND PATENT, NO FLUIDS INFUSING. SAFETY MEASURES: BED LOCKED IN LOWEST POSITION, SIDE RAILS X2, CALL LIGHT WITHIN REACH. WILL ENDORSE TO THE MEDICAL ANTHROPOLOGIST NURSE FOR HIRAM.
--- NOTE | 2022-02-10 19:35 | NUR ---
MS RN OPENING NOTE PATIENT AWAKE IN BED, ALERT/ORIENTED X 4, PT ABLE TO MAKE NEEDS KNOWN. PATIENT STABLE ON RA, NO S/S OF DISTRESS OR SOB NOTED, BREATHING EVEN AND UNLABORED. IV ACCESS ON LAC #20G INTACT AND SALINE LOCKED. SAFETY MEASURES IN PLACE: CALL LIGHT WITHIN REACH, SIDE RAILS UP X 2, BED LOCKED IN LOWEST POSITION, BED ALARM ON. WILL CONTINUE TO MONITOR PATIENT
[2022-02-10 20:00] VITALS: BP 136/79
[2022-02-11 06:07] LABS: BASOPHILS % (AUTO) 0.4 % (0.0-2.0); EOSINOPHILS % (AUTO) 1.4 % (0.0-6.0); HEMATOCRIT 39 % (33-45); HEMOGLOBIN 12.8 g/dL (11.5-14.8); LYMPHOCYTES # (AUTO) 0.9 K/uL (0.8-4.8); LYMPHOCYTES % (AUTO) 16.4 % (20.0-44.0); MEAN CORPUSCULAR HGB CONC 33 g/dl (31.0-36.0); MEAN CORPUSCULAR VOLUME 90 fL (82-100); MONOCYTES # (AUTO) 0.3 K/uL (0.1-1.30); MONOCYTES % (AUTO) 6.1 % (2.0-12.0); NEUTROPHILS # (AUTO) 4.2 K/uL (1.8-8.9); NEUTROPHILS % (AUTO) 75.7 % (43.0-81.0); PLATELET COUNT (AUTO) 197 K/uL (150-450); RED BLOOD CELL COUNT(AUTO) 4.27 MIL/uL (4.0-5.2); WHITE BLOOD COUNT (AUTO) 5.5 K/uL (4.3-11.0)
[2022-02-11 06:46] LABS: CALCIUM, SERUM 8.3 mg/dL (8.5-10.1); CREATININE 0.8 mg/dL (0.6-1.3); MAGNESIUM 2.3 mg/dL (1.8-2.4); PHOSPHORUS 3.1 mg/dL (2.5-4.9); POTASSIUM 3.6 mmol/L (3.5-5.1)
[2022-02-11 06:51] LABS: THYROID STIMULATING HORMONE 1.251 uIU/mL (0.358-3.74)
--- NOTE | 2022-02-11 07:03 | NUR ---
MS RN CLOSING NOTE PATIENT SLEEPING IN BED, ALERT/ORIENTED X 2-3, PT ABLE TO MAKE NEEDS KNOWN. PATIENT STABLE ON RA, NO S/S OF DISTRESS OR SOB NOTED, BREATHING EVEN AND UNLABORED. IV ACCESS ON LFA #22G INTACT AND SALINE LOCKED. MEDICATIONS GIVEN ORDERED, PT NEEDS MET THROUGHOUT SHIFT, NO C/O PAIN THIS SHIFT. SAFETY MEASURES IN PLACE: CALL LIGHT WITHIN REACH, SIDE RAILS UP X 2, BED LOCKED IN LOWEST POSITION, BED ALARM ON. WILL ENDORSE TO DAYSHIFT NURSE FOR CONTINUITY OF CARE
[2022-02-11] MEDS: PANTOPRAZOLE 40 MG TABLET.DR PO SCH (11:10)
[2022-02-11] MEDS: DONEPEZIL 5 MG TABLET PO SCH (17:17)
--- NOTE | 2022-02-11 18:49 | NUR ---
RN CLOSING NOTE PATIENT REMAINS A/O X2-3 AND ABLE TO VERBALIZE ALL NEEDS. FORGETFUL, YET EASILY REDIRECTABLE. EVALUATED BT PHYSICAL THERAPY TODAY AND IS NOW ABLE TO WALK WITH ASSIST OF FWW. CONSTANTLY REMINDED TO USE CALL LIGHT WHEN NEEDING TO GET UP FOR RESTROOM FOR STANDBY ASSIST. MRI COMPLETED ON SHIFT. AWAITING RESULTS. TOLERATED ALL CARE AND MEDICATIONS WELL ON SHIFT. IV ACCESS TO LFA PATENT AND FLUSHING WELL. NO SOB OR RESPIRATORY DISTRESS OBSERVED OR REPORTED. SAFETY MEASURES REMAIN IN PLACE WITH BED IN LOWEST POSITION AND LOCKED. SIDERAIL UP X2. CALL LIGHT WITHIN REACH. WILL CONTINUE TO MONITOR.
[2022-02-11 20:00] VITALS: BP 156/75
--- NOTE | 2022-02-11 20:34 | NUR ---
MS RN OPENING NOTE PATIENT AWAKE IN BED, ALERT/ORIENTED X 2-3, PT ABLE TO MAKE NEEDS KNOWN. PT DENIES PAIN AT THIS TIME. PATIENT STABLE ON RA, NO S/S OF DISTRESS OR SOB NOTED, BREATHING EVEN AND UNLABORED. IV ACCESS ON LFA #22G INTACT AND SALINE LOCKED. RIGHT KNEE WRAPPED IN ADELINE BANDAGE. SAFETY MEASURES IN PLACE: CALL LIGHT WITHIN REACH, SIDE RAILS UP X 2, BED LOCKED IN LOWEST POSITION, BED ALARM ON. WILL CONTINUE TO MONITOR PATIENT
[2022-02-11] MEDS: HYDROCODONE/APAP 5/325MG TABLET PO PRN (21:07)
[2022-02-12] MEDS: HYDROCODONE/APAP 5/325MG TABLET PO PRN (05:59)
--- NOTE | 2022-02-12 07:08 | NUR ---
MS RN CLOSING NOTE PATIENT SLEEPING IN BED, ALERT/ORIENTED X 2, VERY FORGETFUL AND CONFUSED AT TIMES, POSSIBLY SUNDOWNING. PT ABLE TO MAKE NEEDS KNOWN. PATIENT STABLE ON RA, NO S/S OF DISTRESS OR SOB NOTED, BREATHING EVEN AND UNLABORED. NEW IV ACCESS INSERTED ON LFA #24G D/T PATIENT PULLING OUT, INTACT AND SALINE LOCKED. MEDICATIONS GIVEN ORDERED, PT NEEDS MET THROUGHOUT SHIFT, PAIN MANAGED. RIGHT KNEE STILL WRAPPED IN ADELINE BANDAGE. SAFETY MEASURES IN PLACE: CALL LIGHT WITHIN REACH, SIDE RAILS UP X 2, BED LOCKED IN LOWEST POSITION, BED ALARM ON. WILL ENDORSE TO DAYSHIFT NURSE FOR CONTINUITY OF CARE
--- NOTE | 2022-02-12 07:30 | NUR ---
RN MS NOTES PT IN BED, AWAKE, ALERT AND VERBALLY RESPONSIVE, NO COMPLAINT AT THIS TIME, RESPIRATIONS NORMAL, CALL LIGHT WITHIN REACH.
[2022-02-12 08:00] VITALS: BP 138/79
[2022-02-12] MEDS: PANTOPRAZOLE 40 MG TABLET.DR PO SCH (08:42)
--- NOTE | 2022-02-12 09:04 | NUR ---
RN MS NOTES SPOKE WITH PT'S DAUGHTER, STATED THAT SHE WILL BE BRINGING HER MOM HOME AND SHE IS PLANNING TO BRING HER MOM TO SURGERY ON MONDAY, DR. MUKHERJEE INFORMED AND SAID THAT IT IS OK TO DISCHARGE PATIENT, DISCHARGE ORDER GIVEN.
[2022-02-12] MEDS: HYDROCODONE/APAP 10/325MG TABLET PO PRN (09:31)
--- NOTE | 2022-02-12 09:49 | NUR ---
RN MS NOTES PT AWAKE, ALERT AND ORIENTED, WALKING INSIDE HER ROOM WITH STEADY GAIT, DISCHARGE AND MEDICATION INSTRUCTIONS PRIOVIDED TO PT AND DAUGHTER AVANI, VERBALIZED UNDERSTANDING, BELONGINGS ACCOUNTED FOR, PT'S WALLET PICKED UP FROM NURSING DRY BOX TENDER SAFE AND RECEIVED BY PT'S DAUGHTER AVANI, ASSISTED TO WHEELCHAIR AND TO THE HOSPITAL LOBBY BY FRONT DESK RECEPTIONIST, LEFT VIA PRIVATE CAR IN STABLE CONDITION.
== END 2022-02-12 10:00 | disposition home health service (06) | DRG 553 ==
LOC: ER 22:52 → TRANSITION 02-10 04:47 → MED 02-10 10:28
PROVIDERS: ADMIT Internal Medicine; ATTEND Internal Medicine
DX: M25.061 Hemarthrosis, right knee (principal); G93.41 Metabolic encephalopathy; N17.0 Acute kidney failure with tubular necrosis; Z20.822 Contact with and (suspected) exposure to COVID-19; F03.90 Unspecified dementia, unspecified severity, without behavioral disturbance, psychotic disturbance, mood disturbance, and anxiety; J45.909 Unspecified asthma, uncomplicated; Z79.82 Long term (current) use of aspirin; Z79.51 Long term (current) use of inhaled steroids; Z79.899 Other long term (current) drug therapy; M81.0 Age-related osteoporosis without current pathological fracture; Z90.49 Acquired absence of other specified parts of digestive tract; M65.9 Synovitis and tenosynovitis, unspecified; M17.11 Unilateral primary osteoarthritis, right knee
CPT/HCPCS: 36415; 73564-TC; 73700-TC; 73721-TC; 80048-TC; 80076-TC; 83735-TC; 84100-TC; 84443-TC; 84550-TC; 85025-TC; 85652-TC; 86140-TC; 87070-TC; 87081-TC; 93971-TC; 97110-TC; 97112-TC; 97116-TC; C9803; G0378; J2270

== ENCOUNTER 2022-06-19 17:17 | Emergency (ER) | payer OTHER ==
[~2022-06-19] VITALS: Ht 165.1 cm; Wt 64.9 kg
[~2022-06-19 17:17] MED LIST changes: -ASPI-1169 PO; +HYDR-3972 PO; -HYDR-4275 PO
[2022-06-19 18:05] VITALS: BP 138/71
--- NOTE | 2022-06-19 18:10 | NUR ---
BIB FAMILY, R ANKLE WORSENING PAIN W/ NOTED SWELLING AND REDNESS. R ANKLE FX 2 WEEKS AGO. WANTS TO R/O DVT, CELLULITIS.
--- NOTE | 2022-06-19 18:18 | NUR ---
AT BEDSIDE FOR EVAL.
--- NOTE | 2022-06-19 18:35 | NUR ---
U/S TECH AT BEDSIDE
[2022-06-19] MEDS ORDERED: CEPH500C2 PO (19:29)
[2022-06-19] MEDS ORDERED: CEPHALEXIN MONOHYDRATE 500 MG CAPSULE PO ONE ×2 (19:30→19:38)
--- NOTE | 2022-06-19 20:00 | NUR ---
Patient discharged to home in stable condition. Written and verbal after care instructions given. Patient verbalizes understanding of instruction.
== END 2022-06-19 20:00 | disposition home or self-care (01) ==
LOC: ER 17:17
DX: L03.115 Cellulitis of right lower limb (principal); J45.909 Unspecified asthma, uncomplicated; Z90.710 Acquired absence of both cervix and uterus; Z60.2 Problems related to living alone; Z79.899 Other long term (current) drug therapy
CPT/HCPCS: 93971-TC